=== PATIENT | female | born 1960 | race Two or more races ===

== ENCOUNTER 2016-12-11 19:21 | Inpatient (IN) | payer MEDICARE, SELFPAY ==
[~2016-12-11] VITALS: Ht 160 cm; Wt 90.9 kg
[2016-12-11] MEDS ORDERED: MAALOX/HYOSCYAMINE/LIDOCAINE 45 ML BTL ONE (19:48)
[2016-12-11] MEDS ORDERED: MAALOX/HYOSCYAMINE/LIDOCAINE 45 ML BTL PO ONE (20:00)
[2016-12-11] MEDS ORDERED: ONDANSETRON 2MG/ML, 2ML IVPush ONE (20:00)
[2016-12-11] MEDS ORDERED: SODIUM CHLORIDE 0.9% 1,000ML IVBOLUS ONE (20:00)
[2016-12-11] MEDS ORDERED: SODIUM CHLORIDE FLUSH 10ML SYR IVF ONE (20:00)
[2016-12-11] MEDS ORDERED: HYDROmorphone 1 MG/ML, 1ML ONE ×2 (20:32→21:39)
[2016-12-11] MEDS ORDERED: ONDANSETRON 2MG/ML, 2ML ONE (20:32)
[2016-12-11] MEDS: HYDROmorphone 1 MG/ML, 1ML IVPush PRN ×2 (20:47→21:44)
[2016-12-11 20:53] LABS: ASPARTATE AMINO TRANSFERASE 19 U/L (15-37); BLOOD UREA NITROGEN 15 mg/dL (7-18)
[2016-12-11] MEDS ORDERED: methylPREDNISolone SOD SUCC 125 MG/2 ML IVPush ONE (21:30)
[2016-12-11] MEDS ORDERED: DIPHENHYDRAMINE 50 MG/ML, 1ML IVPush ONE (21:30)
[2016-12-11] MEDS ORDERED: methylPREDNISolone SOD SUCC 125 MG/2 ML ONE (21:31)
[2016-12-11] MEDS ORDERED: DIPHENHYDRAMINE 50 MG/ML, 1ML ONE (21:31)
[2016-12-11] MEDS ORDERED: OMNIPAQUE 350 MG/ML, 100ML BOTTLE ONE (22:00)
[2016-12-11] MEDS ORDERED: SODIUM CHLORIDE 0.9% 1,000 ML IV ONE (23:18)
[2016-12-11] MEDS ORDERED: MORPHINE SULFATE 4 MG/ML, 1ML ONE (23:25)
[2016-12-11] MEDS ORDERED: PROMETHAZINE 25 MG/ML, 1ML IM PRN (23:30)
[2016-12-11] MEDS ORDERED: MORPHINE SULFATE 4 MG/ML, 1ML IVPush PRN ×2 (23:30)
[2016-12-11] MEDS ORDERED: BISACODYL 10 MG SUPP PR PRN (23:30)
[2016-12-11] MEDS ORDERED: METOCLOPRAMIDE 5 MG/ML, 2ML IVPush PRN (23:30)
[2016-12-11] MEDS ORDERED: ONDANSETRON 2MG/ML, 2ML IVPush PRN ×2 (23:30)
[2016-12-11] MEDS ORDERED: LORazepam 2 MG/ML, 1ML IVPush PRN (23:30)
[2016-12-12] MEDS: CEFTRIAXONE PMX 2GM/50ML 50 ML IV SCH (01:09)
[2016-12-12] MEDS: POTASSIUM CHLORIDE 20 MEQ in LACTATED RINGERS 1,000 ML IV SCH ×2 (01:49→11:14)
[2016-12-12] MEDS: METRONIDAZOLE PMX 500MG/100ML 100 ML IV SCH ×3 (01:49→17:25)
[2016-12-12] MEDS: HYDROmorphone 2 MG/ML, 1ML IVPush PRN ×2 (01:55→05:10)
[2016-12-12 02:00] VITALS: BP 104/65
[2016-12-12] MEDS ORDERED: BENZOCAINE 20% SPRAY 0.5ML TP ONE (05:30)
[2016-12-12 05:34] LABS: BLOOD UREA NITROGEN 14 mg/dL (7-18)
[2016-12-12] MEDS ORDERED: BENZOCAINE AEROSOL SPRAY 20%, 60ML TP PRN (06:00)
[2016-12-12 07:25] VITALS: BP 100/66
[2016-12-12 13:52] VITALS: BP 101/65
[2016-12-12 18:56] VITALS: BP 115/70
[2016-12-12] MEDS: BISACODYL 10 MG SUPP PR SCH (19:35)
[2016-12-13] MEDS: CEFTRIAXONE PMX 2GM/50ML 50 ML IV SCH (00:43)
[2016-12-13] MEDS: POTASSIUM CHLORIDE 20 MEQ in LACTATED RINGERS 1,000 ML IV SCH ×2 (00:43→09:04)
[2016-12-13 01:18] VITALS: BP 109/68
[2016-12-13] MEDS: METRONIDAZOLE PMX 500MG/100ML 100 ML IV SCH ×2 (01:59→09:52)
[2016-12-13 06:18] LABS: ASPARTATE AMINO TRANSFERASE 13 U/L (15-37); BLOOD UREA NITROGEN 10 mg/dL (7-18)
[2016-12-13 08:11] VITALS: BP 112/77
[2016-12-13] MEDS ORDERED: MAGNESIUM HYDROXIDE 8%, 30ML UDC PO SCH (09:00)
[2016-12-13] MEDS: BISACODYL 10 MG SUPP PR SCH (09:04)
[2016-12-13 13:24] VITALS: BP 122/79
== END 2016-12-13 14:46 | disposition home or self-care (01) | DRG 389 ==
LOC: ED 21:42 → SUATTDRO 23:18 → EDIP 23:36 → 4NOR 12-12 00:36
DX: K56.5 Intestinal adhesions [bands] with obstruction (postinfection) (principal); E87.1 Hypo-osmolality and hyponatremia; R65.10 Systemic inflammatory response syndrome (SIRS) of non-infectious origin without acute organ dysfunction; D72.829 Elevated white blood cell count, unspecified; K80.20 Calculus of gallbladder without cholecystitis without obstruction; Z82.49 Family history of ischemic heart disease and other diseases of the circulatory system; Z90.710 Acquired absence of both cervix and uterus; Z88.0 Allergy status to penicillin; Z91.041 Radiographic dye allergy status; Z91.040 Latex allergy status
CPT/HCPCS: 36415; 74000; 74177; 76700; 80048; 80053; 81001; 83605; 83690; 84703; 85025; 85610; 87040; 96361; 96374; 96375; 96376; J0696; J1170; J2405; J3480; Q9967; J1200; J2060; J2930; J7030; J7120